=== PATIENT | male | born 1930 | race Caucasian/White ===

== ENCOUNTER 2020-02-12 19:18 | Emergency (ER) | payer OTHER ==
[~2020-02-12] VITALS: Ht 172.7 cm; Wt 91.6 kg
[2020-02-12 22:41] LABS: Albumin 3.6 g/dL (3.4-5.0); Calcium 8.3 mg/dL (8.5-10.1); Hemoglobin 13.1 g/dL (13.5-17.5); INR 1.11 (0.9-1.15); Partial Thromboplastin Time 30.8 sec (23.0-31.2); Potassium 4.3 mmol/L (3.5-5.1)
[2020-02-12 22:44] LABS: BUN/Creatinine Ratio 19.8; Hematocrit 40.1 % (41.0-53.0); Mean Corpuscular Hemoglobin 31.6 pg (28.0-32.0); Mean Corpuscular Hgb Conc. 32.7 g/dL (32.0-36.0); Mean Corpuscular Volume 96.5 fL (80.0-100.0); Platelet Count (auto) 64 10^3/uL (140-450); Red Blood Cells 4.15 10^6/uL (4.5-5.90); Red Cell Distribution Width 15.9 % (11.8-14.3); White Blood Cell 26.8 10^3/uL (4.4-10.8)
[2020-02-12 22:46] LABS: Bilirubin, Total 0.5 mg/dL (0.2-1.0); Total Protein 6.3 g/dL (6.4-8.2)
[2020-02-12 23:11] LABS: Band Neutrophils % (manual) 0; Basophils % (manual) 0 (0.0-2.0); Blast Cells 0; Eosinophils % (manual) 0 (0-7); Lymphocytes % (manual) 77 (10.0-50.0); Metamyelocytes % 0; Monocytes % (manual) 6 (0-12); Myelocytes % 0; Promyelocytes % 0; Reactive Lymphocytes 7
[2020-02-13] MEDS ORDERED: cloNIDine HCL 0.1 MG TAB PO ONE (01:45)
[2020-02-13] MEDS ORDERED: FUROSEMIDE 20 MG/2 ML VIAL IV ONE (03:30)
[2020-02-13 05:57] VITALS: BP 148/66
== END 2020-02-13 06:34 | disposition home or self-care (01) ==
LOC: ER 19:18
DX: R60.0 Localized edema (principal); D72.829 Elevated white blood cell count, unspecified; D69.6 Thrombocytopenia, unspecified; E11.9 Type 2 diabetes mellitus without complications; I10 Essential (primary) hypertension
CPT/HCPCS: 36415; 80053; 83605; 83880; 85007; 85027; 85379; 85610; 85730; 87040; 93005; 93970; 96374; 99285; J1940